=== PATIENT | female | born 1985 ===

== ENCOUNTER 2018-09-25 09:01 | Emergency (ER) | payer MEDICAID ==
--- NOTE | 2018-09-25 09:19 | ED PDOC ---
Arrival/HPI <Lana Umana PA-C - Last Filed: 09/27/18 13:17> - General Historian: Patient - History of Present Illness Narrative History of Present Illness (Text): 09/25/18 09:14 33 y/o female with no significant PMH presents to the ED c/o lower abdominal pain x 2 weeks. Pain is crampy, intermittent, but occurs daily. Associated nausea, vomiting, lower back pain, and urinary frequency. Last episode of vomiting was yesterday, non bloody, non bilious. One episode of diarrhea this morning, also nonbloody. Tolerating PO per baseline. Pt has taken multiple pre gnancy tests at home, which have been negative. LMP 05/10/18. Pt states she has had irregular periods in the past but never this far apart. Denies chest pain, SOB, vaginal bleeding/odor/discharge, rash, headache, dizziness, dysuria, hematuria, or any other associated symptoms. <Radha Hines - Last Filed: 09/28/18 19:57> - General Chief Complaint: Abdominal Pain Time Seen by Provider: 09/25/18 09:08 Past Medical History - Provider Review Nursing Documentation Reviewed: Yes <Radha Hines - Last Filed: 09/28/18 19:57> Family/Social History - Physician Review Nursing Documentation Reviewed: Yes Family/Social History: No Known Family HX <Radha Hines - Last Filed: 09/28/18 19:57> Allergies/Home Meds <Lana Umana PA-C - Last Filed: 09/27/18 13:17> <Radha Hines - Last Filed: 09/28/18 19:57> Allergies/Adverse Reactions: Allergies No Known Allergies Allergy (Verified 09/25/18 09:17) Review of Systems - Physician Review All systems were reviewed & negative as marked: Yes - Review of Systems Constitutional: Normal. absent: Fatigue, Fevers Eyes: Normal. absent: Vision Changes ENT: Normal. absent: Sore Throat, Sinus Congestion Respiratory: Normal. absent: SOB, Cough Cardiovascular: Normal. absent: Chest Pain, Palpitations, Syncope Gastrointestinal: Abdominal Pain, Diarrhea, Nausea, Vomiting. absent: Appetite Changes, Food Intolerance Genitourinary Female: Frequency. absent: Dysuria, Hematuria, Vaginal Bleeding, Vaginal Discharge Musculoskeletal: Back Pain Skin: Normal. absent: Rash Neurological: Normal. absent: Headache, Dizziness Endocrine: Normal Hemo/Lymphatic: Normal Psychiatric: Normal <Radha Hines - Last Filed: 09/28/18 19:57> Physical Exam Vital Signs Temp Pulse Resp BP Pulse Ox 09/25/18 11:01 77 18 112/73 99 09/25/18 09:01 98 F 76 18 110/70 100 <Lana Umana PA-C - Last Filed: 09/27/18 13:17> Vital Signs Reviewed: Yes Temperature: Afebrile Blood Pressure: Normal Pulse: Regular Respiratory Rate: Normal Appearance: Positive for: Well-Appearing, Non-Toxic, Comfortable Pain Distress: None Mental Status: Positive for: Alert and Oriented X 3 - Systems Exam Head: Present: Atraumatic, Normocephalic Pupils: Present: PERRL Extroacular Muscles: Present: EOMI Conjunctiva: Present: Normal Mouth: Present: Moist Mucous Membranes Neck: Present: Normal Range of Motion. No: Meningeal Signs Respiratory/Chest: Present: Clear to Auscultation, Good Air Exchange. No: Respiratory Distress, Accessory Muscle Use Cardiovascular: Present: Regular Rate and Rhythm, Normal S1, S2 Abdomen: Present: Normal Bowel Sounds. No: Tenderness, Distention, Peritoneal Signs, Rebound, Guarding Back: Present: Normal Inspection Upper Extremity: Present: Normal Inspection, Normal ROM, NORMAL PULSES, N eurovascularly Intact, Capillary Refill < 2s. No: Cyanosis, Edema, Temperature Abnormalties Lower Extremity: Present: Normal Inspection, NORMAL PULSES, Normal ROM, Neurovascularly Intact, Capillary Refill < 2 s. No: Edema, Temperature Abnormalties Neurological: Present: GCS=15, CN II-XII Intact, Speech Normal, Motor Func Grossly Intact, Normal Sensory Function, Gait Normal Skin: Present: Warm, Dry, Normal Color. No: Rashes Psychiatric: Present: Alert, Oriented x 3, Normal Insight, Normal Concentration, Normal Affect, Normal Mood <Radha Hines - Last Filed: 09/28/18 19:57> Medical Decision Making - Lab Interpretations Microbiology Results: Microbiology Results 09/25/18 09:35 Urine Random Urine Culture - Final Escherichia Coli Lab Results: PT 11.7 SECONDS (9.4-12.5) 09/25/18 09:35 INR 1.04 09/25/18 09:35 APTT 34.6 Seconds (26.9-38.3) 09/25/18 09:35 Total Bilirubin 0.3 mg/dL (0.2-1.3) 09/25/18 09:35 AST 20 U/L (14-36) 09/25/18 09:35 ALT 14 U/L (7-56) 09/25/18 09:35 Alkaline Phosphatase 91 U/L (38-126) 09/25/18 09:35 Total Protein 8.4 g/dL (5.8-8.3) H 09/25/18 09:35 Albumin 4.8 g/dL (3.0-4.8) 09/25/18 09:35 Globulin 3.7 gm/dL 09/25/18 09:35 Albumin/Globulin Ratio 1.3 (1.1-1.8) 09/25/18 09:35 Lipase 151 U/L (23-300) 09/25/18 09:35 Urine Color Yellow (YELLOW) 09/25/18 09:35 Urine Appearance Clear (CLEAR) 09/25/18 09:35 Urine pH 6.0 (4.7-8.0) 09/25/18 09:35 Ur Specific [place] 1.025 (1.005-1.035) 09/25/18 09:35 Urine Protein Negative mg/dL (<30 mg/dL) 09/25/18 09:35 Urine Glucose (UA) Negative mg/dL (NEGATIVE) 09/25/18 09:35 Urine Ketones Negative mg/dL (NEGATIVE) 09/25/18 09:35 Urine Blood Negative (NEGATIVE) 09/25/18 09:35 Urine Nitrate Negative (NEGATIVE) 09/25/18 09:35 Urine Bilirubin Negative (NEGATIVE) 09/25/18 09:35 Urine Urobilinogen 0.2 E.U./dL (<1 E.U./dL) 09/25/18 09:35 Ur Leukocyte Esterase Trace [place]/uL (NEGATIVE) H 09/25/18 09:35 Urine RBC None /hpf (0-2) 09/25/18 09:35 Urine WBC 1 - 3 /hpf (0-6) 09/25/18 09:35 Urine HCG, Qual Negative (NEGATIVE) 09/25/18 09:35 Urine HCG, Qual Negative (NEGATIVE) 09/25/18 09:35 - RAD Interpretation Radiology Orders: 09/25/18 09:23 TRANSVAGINAL [US] Stat <Lana Umana PA-C - Last Filed: 09/27/18 13:17> ED Course and Treatment: 09/25/18 09:20 Initial Plan: * CBC, CMP * Lipase * UA, culture * POC preg * Transvaginal Ultrasound Labwork reviewed, unremarkable. Transvaginal ultrasound negative for pathology. Advised PMD, OBGYN, and GI followup. Diagnostic testing results and plan of care discussed with patient. Strict instructions given regarding prescription use, importance of followup, and signs/symptoms to return to ER including worsening pain, chest pain, SOB, fever, chills, or any other new/worsening symptoms. Pt verbalized understanding of discussion. Patient is A&Ox3, ambulating with steady gait, with vital signs stable for discharge. - Lab Interpretations Lab Results: 09/25/18 09:35 09/25/18 09:35 Lab Results 09/25/18 09:35: PT 11.7, INR 1.04, APTT 34.6 09/25/18 09:35: Urine Opiates Screen Negative, Urine Methadone Screen Negative, Ur Barbiturates Screen Negative, Ur Phencyclidine Scrn Negative, Ur Amphetamines Screen Negative, U Benzodiazepines Scrn Negative, U Oth Cocaine Metabols Negative, U Cannabinoids Screen Negative 09/25/18 09:35: Sodium 139, Potassium 3.7, Chloride 106, Carbon Dioxide 26, A [place] 11, BUN 9, Creatinine 0.8, Est GFR ( Amer) > 60, Est GFR (Non-Af Amer) > 60, Random Glucose 90, Calcium 9.7, Total Bilirubin 0.3, AST 20, ALT 14, Alkaline Phosphatase 91, Total Protein 8.4 H, Albumin 4.8, Globulin 3.7, Albumin/Globulin Ratio 1.3, Lipase 151 09/25/18 09:35: Urine Color Yellow, Urine Appearance Clear, Urine pH 6.0, Ur Specific [place] 1.025, Urine Protein Negative, Urine Glucose (UA) Negative, Urine Ketones Negative, Urine Blood Negative, Urine Nitrate Negative, Urine Bilirubin Negative, Urine Urobilinogen 0.2, Ur Leukocyte Esterase Trace H, Urine RBC None, Urine WBC 1 - 3, Urine HCG, Qual Negative 09/25/18 09:35: WBC 10.4, RBC 4.60, Hgb 12.6, Hct 38.7, MCV 84.1, MCH 27.4, MCHC 32.6, RDW 12.8, Plt Count 246, MPV 10.9, Neut % (Auto) 54.5, Lymph % (Auto) 38.8 H, [place] % (Auto) 5.4, Eos % (Auto) 1.2 L, Baso % (Auto) 0.1, Lymph # (Auto) 4.0 H, [place] # (Auto) 0.6, Eos # (Auto) 0.1, Baso # (Auto) 0.01, Absolute Neuts (auto) 5.66 I have reviewed the lab results: Yes - RAD Interpretation Narrative RAD Interpretations (Text): 09/25/18 10:37 Transvaginal Ultrasound: FINDINGS: UTERUS: Measures 3.8 x 4 x 7.2 cm. Normal in size and appearance. No fibroid or other mass lesion seen. ENDOMETRIUM: Measures 2 point mm in diameter. No ultrasound findings to suggest gestational sac, fluid, debris, mass or polyp or other pathologic process within the endometrium. CERVIX: No cervical abnormality identified. RIGHT OVARY: Measures 1.7 x 2.4 x 3.0 cm. No solid mass. Normal flow. LEFT OVARY: Measures 1.3 x 2.5 x 3.3 cm. No solid mass. Normal flow. FREE FLUID: No significant free fluid noted. OTHER FINDINGS: None. IMPRESSION: No significant or acute findings to account for/ related to the clinical presentation. Additional benign and/or incidental findings described above. A And P Mechanic: Radiologist <Radha Hines - Last Filed: 09/28/18 19:57> Disposition/Present on Arrival - Notes Notes (Text): 09/27/18 13:18 Urine cx +e coli, sensitive to bactrim. Pt called, message left to call back, needs 2nd call back. <Lana Umana PA-C - Last Filed: 09/27/18 13:17> - Present on Arrival Any Indicators Present on Arrival: No History of DVT/PE: No History of Uncontrolled Diabetes: No Urinary Catheter: No History of Decub. Ulcer: No - Disposition Have Diagnosis and Disposition been Completed?: Yes Disposition Time: 10:38 Patient Plan: Discharge <Radha Hines - Last Filed: 09/28/18 19:57> - Disposition Diagnosis: Nausea, vomiting, and diarrhea Disposition: HOME/ ROUTINE Condition: GOOD Discharge Instructions (ExitCare): Acute Abdomen (Belly Pain), Nausea and Vomiting, Adult Additional Instructions: Increase fluids Bentyl every 12 hours as needed for cramping Zofran every 8 hours as needed for nausea Pepcid every 12 hours as needed for indigestion Ibuprofen/tylenol for pain Followup with GI doctor within 2 days Followup with OBGYN within 2 days Return to ER with any new/worsening symptoms Prescriptions: Dicyclomine [Dicyclomine HCl] 10 mg PO Q12H PRN #14 cap PRN Reason: Pain, Moderate (4-7) Famotidine [Pepcid] 20 mg PO Q12H PRN #30 tab PRN Reason: Indigestion Ondansetron HCl [Zofran] 4 mg PO Q8 PRN #9 tablet PRN Reason: Nausea/Vomiting Referrals: Felipe Clarke MD [Staff Provider] - Follow up with primary Kiya Ramos MD [Staff Provider] - Follow up with primary Allison Hanks MD [Medical Doctor] - Follow up with primary [facility] [Outside] - Follow up with primary Forms: [facility] (Y[place]i), WORK NOTE
[2018-09-25 09:20] VITALS: BMI 24.0
[2018-09-25 09:23] VITALS: RESP 18; TEMP 98
[2018-09-25 09:53] LABS: BASO # 0.01 K/mm3 (0.0-2.0); BASO % 0.1 % (0.0-3.0); EOS # 0.1 (0.0-0.7); EOS % 1.2 % (1.5-5.0); HEMOGLOBIN 12.6 g/dL (12.0-16.0); LYMPH % 38.8 % (22.0-35.0); MEAN CELL VOLUME 84.1 fl (80.0-105.0); MEAN CORPUSCULAR HEMOGLOBIN 27.4 pg (25.0-35.0); MEAN CORPUSCULAR HGB CONC 32.6 g/dl (31.0-37.0); MEAN PLATELET VOLUME 10.9 fl (7.0-11.0); MONO # 0.6 (0.1-0.6); MONO % 5.4 % (1.0-6.0); RBC 4.6 10^6/uL (3.5-6.1); RED CELL DISTRIBUTION WIDTH 12.8 % (11.5-14.5); WHITE BLOOD COUNT 10.4 10^3/uL (4.5-11.0)
[2018-09-25 09:54] LABS: URINE BILIRUBIN NEGATIVE (NEGATIVE); URINE BLOOD NEGATIVE (NEGATIVE); URINE GLUCOSE (UA) NEGATIVE (NEGATIVE); URINE LEUKOCYTE ESTERASE TRACE Leu/uL (NEGATIVE); URINE PROTEIN NEGATIVE mg/dL (<30 mg/dL); URINE UROBILINOGEN 0.2 E.U./dL (<1 E.U./dL)
[2018-09-25 09:55] LABS: URINE APPEARANCE CLEAR (CLEAR); URINE COLOR YELLOW (YELLOW)
[2018-09-25 09:56] LABS: HCG,QUALITATIVE URINE NEGATIVE (NEGATIVE)
[2018-09-25 10:04] LABS: ALB/GLOB RATIO 1.3 (1.1-1.8); ALBUMIN 4.8 g/dL (3.0-4.8); ALT/SGPT 14 U/L (7-56); AST/SGOT 20 U/L (14-36); BLOOD UREA NITROGEN 9 mg/dL (7-21); CALCIUM 9.7 mg/dL (8.4-10.5); GFR NON-AFRICAN AMERICAN > 60; INR 1.04; LIPASE 151 U/L (23-300); PARTIAL THROMBOPLASTIN TIME 34.6 Seconds (26.9-38.3); PROTHROMBIN TIME 11.7 SECONDS (9.4-12.5)
[2018-09-25 10:24] LABS: BARBITURATES, UR NEGATIVE (NEGATIVE); BENZODIAZEPINES, UR NEGATIVE (NEGATIVE); OPIATES, UR NEGATIVE (NEGATIVE); PHENCYCLIDINE, UR NEGATIVE (NEGATIVE)
--- NOTE | 2018-09-25 10:31 | US ---
Date of service: 09/25/2018 HISTORY: intermittent lower abd pain, back pain; LMP 05/10/2018. COMPARISON: None available. TECHNIQUE: Transvaginal only. Real -time technique with 2D, duplex and color Doppler FINDINGS: UTERUS: Measures 3.8 x 4 x 7.2 cm. Normal in size and appearance. No fibroid or other mass lesion seen. ENDOMETRIUM: Measures 2 point mm in diameter. No ultrasound findings to suggest gestational sac, fluid, debris, mass or polyp or other pathologic process within the endometrium. CERVIX: No cervical abnormality identified. RIGHT OVARY: Measures 1.7 x 2.4 x 3.0 cm. No solid mass. Normal flow. LEFT OVARY: Measures 1.3 x 2.5 x 3.3 cm. No solid mass. Normal flow. FREE FLUID: No significant free fluid noted. OTHER FINDINGS: None. IMPRESSION: No significant or acute findings to account for/ related to the clinical presentation. Additional benign and/or incidental findings described above. Concordant findings (preliminary report) provided by [facility].
[2018-09-25 11:02] VITALS: BP 112/73; PULSE 77; O2SAT 99
== END 2018-09-25 11:02 | disposition home or self-care (01) ==
LOC: ED 09:01
DX: R11.2 Nausea with vomiting, unspecified (principal); R10.30 Lower abdominal pain, unspecified